=== PATIENT | female | born 1950 | race Hispanic/Latino ===

== ENCOUNTER 2021-01-21 11:10 | Emergency (ER) | payer MEDICARE ==
[2021-01-21 12:52] LABS: Basophils % (Auto) 0.4 % (0.0-1.8); Eosinophils # (Auto) 0.2 K/mm3 (0.0-0.4); Hematocrit 33.4 % (30.3-42.9); Hemoglobin 10.6 gm/dl (10.1-14.3); Lymphocytes # (Auto) 1.8 K/mm3 (1.2-5.4); Lymphocytes % (Auto) 16.6 % (13.4-35.0); Mean Corpuscular HGB Conc 32 % (30-34); Monocytes # (Auto) 0.6 K/mm3 (0.0-0.8); Monocytes % (Auto) 5.9 % (0.0-7.3); Platelet Count 365 K/mm3 (140-440); Red Blood Count 4.95 M/mm3 (3.65-5.03); Red Cell Distribution Width 18.9 % (13.2-15.2)
--- NOTE | 2021-01-21 12:59 | XRay Report ---
CHEST 2 VIEWS INDICATION: Chest palpitations. COMPARISON: none FINDINGS: Support devices: None. Heart: Within normal limits. Lungs/pleura: No acute air space or interstitial disease. No pneumothorax. Additional findings: None. IMPRESSION: No acute findings. Signer Name: Evan Pleitez Jr, MD Signed: 01/21/2021 12:54 PM Workstation Name: [id number]
--- NOTE | 2021-01-21 13:10 | Emergency Department Report ---
ED General Adult HPI - General Chief complaint: Arrhythmia/Palpitations Stated complaint: SOB/PALPATATIONS Time Seen by Provider: 01/21/21 13:09 Source: patient Mode of arrival: Ambulatory Limitations: No Limitations - History of Present Illness Initial comments: Patient is a 70-year-old female who presents emergency department for evaluation of acute exacerbation of chronic shortness of breath which began 3 to 4 days ago. Patient states she has been evaluated by her primary care physician for shortness of breath intermittently for the past 1 year without explanation. Patient states she had been errantly taking 2 doses of metoprolol XR until this past Thursday during which she reduced to the prescribed once daily, patient believes symptoms started around this time. Patient also notes intermittent swelling and pain to her calves, mostly in her left leg which she noticed predominantly yesterday after an 8-hour drive. Patient denies chest pain, denies fever, denies cough. - Related Data Home Medications Medication Instructions Recorded Confirmed Last Taken ALPRAZolam [Xanax TAB] 2 mg PO BID PRN 01/21/21 01/21/21 01/20/21 AtorvaSTATin [Lipitor] 10 mg PO QHS 01/21/21 01/21/21 01/20/21 Gabapentin [Neurontin] 800 mg PO BID 01/21/21 01/21/21 01/20/21 Glimepiride [Amaryl] 4 mg PO BID 01/21/21 01/21/21 01/20/21 Lactobacillus Combination No.8 1 each PO DAILY 01/21/21 01/21/21 01/20/21 [Adult Probiotic] Metformin HCl [metFORMIN] 1,000 mg PO BID 01/21/21 01/21/21 01/20/21 Metoprolol Xl [Metoprolol 50 mg PO QDAY 01/21/21 01/21/21 01/20/21 SUCCINATE ER TAB] Milk Thistle Seed Extract [Milk 1,000 mg PO DAILY 01/21/21 01/21/21 01/20/21 Thistle] Multivit-Min/Iron/Folic Acid/K 1 each PO DAILY 01/21/21 01/21/21 01/20/21 [Adults Multivitamin Tablet] NovoLOG Mix 70-30 Flexpen 35 units SC BID 01/21/21 01/21/21 01/20/21 [place]-3 Fatty Acids/Fish Oil [Fish 1,000 mg PO DAILY 01/21/21 01/21/21 01/20/21 Oil] Pantoprazole [Protonix] 40 mg PO QDAY 01/21/21 01/21/21 01/20/21 Triamter/Hctz 37.5-25 mg 1 tab PO DAILY 01/21/21 01/21/21 01/20/21 [Maxzide-25] Ubidecarenone [Co Q-10] 100 mg PO DAILY 01/21/21 01/21/21 01/20/21 Allergies Allergy/AdvReac Type Severity Reaction Status Date / Time NSAIDS (Non-Steroidal AdvReac Unknown Verified 01/21/21 11:18 Anti-Inflamma ED Review of Systems ROS: Stated complaint: SOB/PALPATATIONS Other details as noted in HPI Comment: All other systems reviewed and negative ED Past Medical Hx - Past Medical History Hx Hypertension: Yes Hx Diabetes: Yes Additional medical history: PALPATIONS - Surgical History Hx Cholecystectomy: Yes Additional Surgical History: ABD/ C SECTION / CYST FROM BREAST - Social History Smoking Status: Never Smoker Substance Use Type: None - Medications Home Medications: Home Medications Medication Instructions Recorded Confirmed Last Taken Type ALPRAZolam [Xanax TAB] 2 mg PO BID PRN 01/21/21 01/21/21 01/20/21 History AtorvaSTATin [Lipitor] 10 mg PO QHS 01/21/21 01/21/21 01/20/21 History Gabapentin [Neurontin] 800 mg PO BID 01/21/21 01/21/21 01/20/21 History Glimepiride [Amaryl] 4 mg PO BID 01/21/21 01/21/21 01/20/21 History Lactobacillus Combination No.8 1 each PO DAILY 01/21/21 01/21/21 01/20/21 History [Adult Probiotic] Metformin HCl [metFORMIN] 1,000 mg PO BID 01/21/21 01/21/21 01/20/21 History Metoprolol Xl [Metoprolol 50 mg PO QDAY 01/21/21 01/21/21 01/20/21 History SUCCINATE ER TAB] Milk Thistle Seed Extract [Milk 1,000 mg PO DAILY 01/21/21 01/21/21 01/20/21 History Thistle] Multivit-Min/Iron/Folic Acid/K 1 each PO DAILY 01/21/21 01/21/21 01/20/21 History [Adults Multivitamin Tablet] NovoLOG Mix 70-30 Flexpen 35 units SC BID 01/21/21 01/21/21 01/20/21 History [place]-3 Fatty Acids/Fish Oil [Fish 1,000 mg PO DAILY 01/21/21 01/21/21 01/20/21 History Oil] Pantoprazole [Protonix] 40 mg PO QDAY 01/21/21 01/21/21 01/20/21 History Triamter/Hctz 37.5-25 mg 1 tab PO DAILY 01/21/21 01/21/21 01/20/21 History [Maxzide-25] Ubidecarenone [Co Q-10] 100 mg PO DAILY 01/21/21 01/21/21 01/20/21 History ED Physical Exam - General Limitations: No Limitations General appearance: alert, in no apparent distress - Head Head exam: Present: atraumatic, normocephalic - Eye Eye exam: Present: normal appearance - ENT ENT exam: Present: mucous membranes moist - Neck Neck exam: Present: normal inspection - Respiratory Respiratory exam: Present: normal lung sounds bilaterally, other (Tachypnea). Absent: wheezes, rales, rhonchi - Cardiovascular Cardiovascular Exam: Present: regular rate, normal rhythm, other (Murmur) - GI/Abdominal GI/Abdominal exam: Present: soft, normal bowel sounds - Extremities Exam Extremities exam: Present: normal inspection - Back Exam Back exam: Present: normal inspection - Neurological Exam Neurological exam: Present: alert, oriented X3 - Psychiatric Psychiatric exam: Present: normal affect, normal mood - Skin Skin exam: Present: warm, dry, intact, normal color. Absent: rash ED Course Vital Signs 01/21/21 01/21/21 01/21/21 11:21 13:05 13:09 Temperature 97.6 F Pulse Rate 111 H Respiratory 18 22 Rate Blood Pressure Blood Pressure 166/75 [Right] O2 Sat by Pulse 96 96 97 Oximetry 01/21/21 01/21/21 01/21/21 13:16 13:30 13:46 Temperature Pulse Rate 108 H 107 H Respiratory 16 16 Rate Blood Pressure 192/83 190/83 184/84 Blood Pressure [Right] O2 Sat by Pulse 95 95 97 Oximetry 01/21/21 01/21/21 01/21/21 14:00 14:40 14:46 Temperature Pulse Rate 103 H Respiratory 15 Rate Blood Pressure 173/81 173/81 173/81 Blood Pressure [Right] O2 Sat by Pulse 96 96 94 Oximetry 01/21/21 01/21/21 15:00 15:03 Temperature Pulse Rate 105 H Respiratory 20 Rate Blood Pressure 162/71 Blood Pressure 162/71 [Right] O2 Sat by Pulse 95 Oximetry - Reevaluation(s) Reevaluation #1: 01/21/21 14:56 Patient treated with magnesium 2 g IV x1 Reevaluation #2: 01/21/21 15:25 Patient treated with IV normal saline 1 L x 1 with resolution of tachycardia. On reevaluation, patient in no acute distress, states her dyspnea has resolved. Lungs remain clear to auscultation bilaterally, oxygen saturation 97% on room air. Advise follow-up with primary care doctor for reevaluation and pulmonology referral ED Medical Decision Making - Lab Data Result diagrams: 01/21/21 12:00 01/21/21 12:00 Lab Results 01/21/21 01/21/21 01/21/21 Range/Units 12:00 12:00 12:00 WBC 10.6 (4.5-11.0) K/mm3 RBC 4.95 (3.65-5.03) M/mm3 Hgb 10.6 (10.1-14.3) gm/dl Hct 33.4 (30.3-42.9) % MCV 67 L (79-97) fl MCH 21 L (28-32) pg MCHC 32 (30-34) % RDW 18.9 H (13.2-15.2) % Plt Count 365 (140-440) K/mm3 Lymph % (Auto) 16.6 (13.4-35.0) % [place] % (Auto) 5.9 (0.0-7.3) % Eos % (Auto) 2.0 (0.0-4.3) % Baso % (Auto) 0.4 (0.0-1.8) % Lymph # (Auto) 1.8 (1.2-5.4) K/mm3 [place] # (Auto) 0.6 (0.0-0.8) K/mm3 Eos # (Auto) 0.2 (0.0-0.4) K/mm3 Baso # (Auto) 0.0 (0.0-0.1) K/mm3 Seg Neutrophils % 75.1 H (40.0-70.0) % Seg Neutrophils # 7.9 H (1.8-7.7) K/mm3 D-Dimer (0-234) ng/mlDDU Sodium 129 L (137-145) mmol/L Potassium 4.1 (3.6-5.0) mmol/L Chloride 91.8 L (98-107) mmol/L Carbon Dioxide 23 (22-30) mmol/L Anion Gap 18 mmol/L BUN 10 (7-17) mg/dL Creatinine 0.6 (0.6-1.2) mg/dL Estimated GFR > 60 ml/min BUN/Creatinine Ratio 17 % Glucose 229 H (65-100) mg/dL Calcium 8.8 (8.4-10.2) mg/dL Phosphorus 3.10 (2.5-4.5) mg/dL Magnesium 1.60 L (1.7-2.3) mg/dL Total Bilirubin 0.50 (0.1-1.2) mg/dL AST 25 (5-40) units/L ALT 29 (7-56) units/L Alkaline Phosphatase 60 (35-129) units/L Troponin T (0.00-0.029) ng/mL NT-Pro-B Natriuret Pep (0-900) pg/mL Total Protein 7.2 (6.3-8.2) g/dL Albumin 4.0 (3.9-5) g/dL Albumin/Globulin Ratio 1.3 % TSH (0.270-4.200) mlU/mL Urine Bilirubin (Negative) Urine RBC (Auto) (0.0-6.0) /HPF U Epithel Cells (Auto) (0-13.0) /HPF 01/21/21 01/21/21 01/21/21 Range/Units 12:00 12:00 14:00 WBC (4.5-11.0) K/mm3 RBC (3.65-5.03) M/mm3 Hgb (10.1-14.3) gm/dl Hct (30.3-42.9) % MCV (79-97) fl MCH (28-32) pg MCHC (30-34) % RDW (13.2-15.2) % Plt Count (140-440) K/mm3 Lymph % (Auto) (13.4-35.0) % [place] % (Auto) (0.0-7.3) % Eos % (Auto) (0.0-4.3) % Baso % (Auto) (0.0-1.8) % Lymph # (Auto) (1.2-5.4) K/mm3 [place] # (Auto) (0.0-0.8) K/mm3 Eos # (Auto) (0.0-0.4) K/mm3 Baso # (Auto) (0.0-0.1) K/mm3 Seg Neutrophils % (40.0-70.0) % Seg Neutrophils # (1.8-7.7) K/mm3 D-Dimer 175.15 (0-234) ng/mlDDU Sodium (137-145) mmol/L Potassium (3.6-5.0) mmol/L Chloride (98-107) mmol/L Carbon Dioxide (22-30) mmol/L Anion Gap mmol/L BUN (7-17) mg/dL Creatinine (0.6-1.2) mg/dL Estimated GFR ml/min BUN/Creatinine Ratio % Glucose (65-100) mg/dL Calcium (8.4-10.2) mg/dL Phosphorus (2.5-4.5) mg/dL Magnesium (1.7-2.3) mg/dL Total Bilirubin (0.1-1.2) mg/dL AST (5-40) units/L ALT (7-56) units/L Alkaline Phosphatase (35-129) units/L Troponin T < 0.010 (0.00-0.029) ng/mL NT-Pro-B Natriuret Pep (0-900) pg/mL Total Protein (6.3-8.2) g/dL Albumin (3.9-5) g/dL Albumin/Globulin Ratio % TSH 3.750 (0.270-4.200) mlU/mL Urine Bilirubin (Negative) Urine RBC (Auto) (0.0-6.0) /HPF U Epithel Cells (Auto) (0-13.0) /HPF 01/21/21 01/21/21 Range/Units 14:00 14:03 WBC (4.5-11.0) K/mm3 RBC (3.65-5.03) M/mm3 Hgb (10.1-14.3) gm/dl Hct (30.3-42.9) % MCV (79-97) fl MCH (28-32) pg MCHC (30-34) % RDW (13.2-15.2) % Plt Count (140-440) K/mm3 Lymph % (Auto) (13.4-35.0) % [place] % (Auto) (0.0-7.3) % Eos % (Auto) (0.0-4.3) % Baso % (Auto) (0.0-1.8) % Lymph # (Auto) (1.2-5.4) K/mm3 [place] # (Auto) (0.0-0.8) K/mm3 Eos # (Auto) (0.0-0.4) K/mm3 Baso # (Auto) (0.0-0.1) K/mm3 Seg Neutrophils % (40.0-70.0) % Seg Neutrophils # (1.8-7.7) K/mm3 D-Dimer (0-234) ng/mlDDU Sodium (137-145) mmol/L Potassium (3.6-5.0) mmol/L Chloride (98-107) mmol/L Carbon Dioxide (22-30) mmol/L Anion Gap mmol/L BUN (7-17) mg/dL Creatinine (0.6-1.2) mg/dL Estimated GFR ml/min BUN/Creatinine Ratio % Glucose (65-100) mg/dL Calcium (8.4-10.2) mg/dL Phosphorus (2.5-4.5) mg/dL Magnesium (1.7-2.3) mg/dL Total Bilirubin (0.1-1.2) mg/dL AST (5-40) units/L ALT (7-56) units/L Alkaline Phosphatase (35-129) units/L Troponin T (0.00-0.029) ng/mL NT-Pro-B Natriuret Pep 28.13 (0-900) pg/mL Total Protein (6.3-8.2) g/dL Albumin (3.9-5) g/dL Albumin/Globulin Ratio % TSH (0.270-4.200) mlU/mL Urine Bilirubin Neg (Negative) Urine RBC (Auto) 2.0 (0.0-6.0) /HPF U Epithel Cells (Auto) 3.0 (0-13.0) /HPF Vital Signs 01/21/21 01/21/21 01/21/21 11:21 13:05 13:09 Temperature 97.6 F Pulse Rate 111 H Respiratory 18 22 Rate Blood Pressure Blood Pressure 166/75 [Right] O2 Sat by Pulse 96 96 97 Oximetry 01/21/21 01/21/21 01/21/21 13:16 13:30 13:46 Temperature Pulse Rate 108 H 107 H Respiratory 16 16 Rate Blood Pressure 192/83 190/83 184/84 Blood Pressure [Right] O2 Sat by Pulse 95 95 97 Oximetry 01/21/21 01/21/21 01/21/21 14:00 14:40 14:46 Temperature Pulse Rate 103 H Respiratory 15 Rate Blood Pressure 173/81 173/81 173/81 Blood Pressure [Right] O2 Sat by Pulse 96 96 94 Oximetry 01/21/21 01/21/21 15:00 15:03 Temperature Pulse Rate 105 H Respiratory 20 Rate Blood Pressure 162/71 Blood Pressure 162/71 [Right] O2 Sat by Pulse 95 Oximetry - EKG Data -: EKG Interpreted by Me (Sinus rhythm at 108, no ST-T changes, normal QRS) - Radiology Data Radiology results: report reviewed Chest x-ray negative per radiology Critical care attestation.: If time is entered above; I have spent that time in minutes in the direct care of this critically ill patient, excluding procedure time. ED Disposition Clinical Impression: Dyspnea, Dehydration, Hypomagnesemia Disposition: DC-01 TO HOME OR SELFCARE Is pt being admited?: No Condition: Stable Instructions: Shortness of Breath, Adult, [id number] Additional Instructions: Follow-up with PMD in 1 to 2 days for reevaluation. Return to the emergency department for worsening symptoms.
[2021-01-21 13:16] LABS: Alanine Aminotransferase 29 units/L (7-56); Blood Urea Nitrogen 10 mg/dL (7-17); Calcium 8.8 mg/dL (8.4-10.2); Hemolysis Index 1
[2021-01-21 13:28] LABS: Mean Corpuscular Volume 67 fl (79-97)
[2021-01-21 14:01] LABS: BUN/Creatinine Ratio 17
[2021-01-21 14:43] LABS: Bilirubin,Urine NEG (Negative); Blood,Urine NEG (Negative); Color,Urine Yellow (Yellow); Mucus,Urine FEW /HPF; Protein,Urine <15 mg/dL mg/dL (Negative); Urobilinogen,Urine < 2.0 mg/dL (<2.0)
[2021-01-21] MEDS ORDERED: MAGNESIUM SULFATE 2 GM/50 ML BAG IV ONE (14:55)
--- NOTE | 2021-01-21 15:02 | Vascular Lab Report ---
DUPLEX DOPPLER LOWER EXTREMITY VEINS, BILATERAL INDICATION / CLINICAL INFORMATION: calf pain. TECHNIQUE: Duplex doppler imaging was performed through the veins of both lower extremities using venous rony ramírez and other maneuvers. COMPARISON: None available. FINDINGS: RIGHT COMMON FEMORAL VEIN: Negative. RIGHT FEMORAL VEIN: Negative. RIGHT POPLITEAL VEIN: Negative. RIGHT CALF VEINS: Negative. LEFT COMMON FEMORAL VEIN: Negative. LEFT FEMORAL VEIN: Negative. LEFT POPLITEAL VEIN: Negative. LEFT CALF VEINS: Negative. 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 IMPRESSION: 1. No sonographic evidence for DVT in either lower extremity. 2. Left [place] cyst. Signer Name: David Merlos MD Signed: 01/21/2021 2:57 PM Workstation Name: [id number]
[2021-01-21] MEDS ORDERED: SODIUM CHLORIDE 0.9% 1000 ML 1,000 ML IV ONE (15:08)
[2021-01-21 16:04] VITALS: BP 167/67
--- NOTE | 2021-01-24 10:54 | Electrocardiograph Report ---
[facility] Test Date: 2021-01-21 Test Time: 11:24:31 Pat Name: JENNA MENDOZA Department: Room: Gender: F Supervisor Rework: : 1950 Requested By: KE DEAN Order Number: [id number] Reading MD: River Garber Measurements Intervals Iva Rate: 108 P: 66 WY: 169 QRS: -60 QRSD: 134 T: 78 QT: 384 QTc: 510 Interpretive Statements Sinus tachycardia Atrial premature complex RBBB and LAFB Left ventricular hypertrophy No previous ECG available for comparison Electronically Signed On 01-24-2021 7:54:31 PDT by River Garber
== END 2021-01-21 16:30 | disposition home or self-care (01) ==
LOC: ED 11:10
DX: R06.00 Dyspnea, unspecified (principal); E86.0 Dehydration; E83.42 Hypomagnesemia; I10 Essential (primary) hypertension; E11.9 Type 2 diabetes mellitus without complications; Z90.49 Acquired absence of other specified parts of digestive tract; Z98.890 Other specified postprocedural states; Z79.899 Other long term (current) drug therapy; Z88.8 Allergy status to other drugs, medicaments and biological substances
CPT/HCPCS: 36415; 71046; 80053; 81001; 83735; 83880; 84100; 84443; 84484; 85025; 85379; 93005; 93970; 96365; 99284; J3475; J7030